=== PATIENT | male | born 1995 | race Caucasian/White ===

== ENCOUNTER 2021-06-01 23:19 | Emergency (ER) | payer BC ==
[2021-06-02] MEDS ORDERED: predniSONE 20 MG Tab PO ONE (00:34)
== END 2021-06-02 00:42 | disposition home or self-care (01) ==
LOC: MW.ED 23:19
DX: L25.9 Unspecified contact dermatitis, unspecified cause (principal)
CPT/HCPCS: 99282; 99283; A9270-GY